=== PATIENT | male | born 1965 | race Caucasian/White ===

== ENCOUNTER 2020-05-14 05:08 | Inpatient (IN) ==
--- NOTE | 2020-05-08 09:22 | Anesthesiology Consultation ---
Date of Service May 08, 2020 Assessment & Plan (1) Encounter for pre-operative examination: Case originally scheduled for 04/03/20, and patient was seen in [facility] in February. R/S to 05/14/20 due to COVID-19 surge capacity protocol. COVID Status: As of 05/03/20 nurse assessment, patient denies travel to endemic area, known exposure/sick contacts, or symptoms of COVID19. Preoperative COVID19 testing completed on 05/07 at [facility], results not yet received. Chart Review Chart Review: Acceptable Risk for Surgery and Patient seen in Pre Admission Testing (03/04/20) History Surgery Operation Date: 05/14/20 07:15 Proposed Procedures p Right Total Knee Arthroplasty - [place] cM DO Height/Weight Height: 5 ft 11 in Weight: 98.883 kg Allergies Allergy/AdvReac Type Severity Reaction Status Date / Time No Known Allergies Allergy Unknown NONE Verified 05/03/20 13:50 Medications Home Medications Medication Instructions Recorded Confirmed Last Taken aspirin [Aspir-81] 81 mg PO QAM 02/20/20 05/03/20 Unknown atorvastatin 40 mg PO QAM 02/20/20 05/03/20 Unknown cholecalciferol (vitamin D3) 50 mcg PO QAM 02/20/20 05/03/20 Unknown [Vitamin D3] cyanocobalamin (vitamin B-12) 1,000 mcg PO QAM 02/20/20 05/03/20 Unknown cyclobenzaprine 5 mg PO HS PRN 02/20/20 05/03/20 Unknown diclofenac sodium 75 mg PO BID PRN 02/20/20 05/03/20 Unknown ibuprofen 600 mg PO DAILY PRN 02/20/20 05/03/20 Unknown lisinopril 40 mg PO QAM 02/20/20 05/03/20 Unknown magnesium oxide 400 mg PO TID 02/20/20 05/03/20 Unknown pantoprazole [Protonix] 40 mg PO QAM 02/20/20 05/03/20 Unknown Past Medical History Medical History (Updated 05/08/20 @ 09:20 by Alexander Curry) Arthritis GERD (gastroesophageal reflux disease) controlled Hyperlipidemia Hypertension Obesity Prediabetes A1C 6.3% on pre-op testing 05/07/20. Past Surgical History Surgical History Biceps muscle tear right s/p repair History of colonoscopy multiple History of esophagogastroduodenoscopy (EGD) multiple History of herniorrhaphy History of knee surgery right X 2 Social History Smoking Status: Light tobacco smoker tobacco type: cigars Smoking cigarettes per day: cigars few times per month Do You Dip or Chew Tobacco: No Hx Alcohol Use: Yes Alcohol type: wine and hard liquor alcohol intake frequency: a few times a week Hx Substance Use: No substance use type: does not use Testing Laboratory Results 05/07/20 WBC: 6.77 H/H: 15.6/44.9 PLATELETS: 199 SODIUM: 141 POTASSIUM: 4.1 CHLORIDE: 109 CO2: 27 BUN: 21 CREATININE: 1.20 GLUCOSE: 97 PT: 10.6 PTT: 25.5 INR: 1.0 A1C: 6.3% Other Testing Electrocardiogram Date: 03/04/20 SR with PACs at 70bpm. Otherwise normal ECG. Chest X-Ray Date: 03/04/20 FINDINGS: Cardiomediastinal and hilar silhouettes are within normal limits. There is no pneumothorax, pleural effusion, airspace consolidation or overt pulmonary edema. Degenerative changes of the shoulders and spine. Mild mid tho racic dextroscoliosis. IMPRESSION: No acute process.
--- NOTE | 2020-05-10 17:57 | History & Physical Report ---
Date of Service May 10, 2020 date of surgery: 05/14/20 Procedure: Right Total Knee Arthroplasty Assessment & Plan (1) Arthritis of right knee: Risks and benefits of procedure discussed in detail today, patient would like to proceed with a Right total knee replacement at [facility] as scheduled. will obtain medical clearance from Dr Sarabia prior to surgery as well as obtain PATs at [facility]. f/u 2 weeks post op for routine post- operative care and x-ray, sooner if having any problems. will make arrangements for HHPT at the time of discharge. At this point in time, has failed conservative measures and would like to proceed with surgical intervention. The risks and benefits have been discussed including, but not limited to, risk of infection, nerve injury, stiffness, loss of motion, failure to improve, etc. Reasonable outcomes and options of treatment were discussed. An explanation of appropriate alternatives to the procedure that may be advantageous were discussed and their risks and benefits, as well as the risks and benefits of not proceeding with treatment. I offered to answer any additional inquiries concerning the treatment involved. All the patient's questions were answered. The patient is agreeable, understanding of the treatment plan and alternatives, and wishes to proceed with the treatment plan. History of Present Illness Chief Complaint: Right knee pain Primary Care Provider: Shirlene Heart MD [place] is a 55 year old male who complains of Right knee pain, presents for pre-op evaluation prior to a Right total knee replacement by dr Mc at [facility]. He complains of pain, decreased range of motion, instability and stiffness in the Right knee. Currently he states that the symptoms are moderate-severe. The pain is described as aching, sharp and throbbing. The symptoms are aggravated by ascending stairs, daily activities, first steps while awake walking. Prior NSAIDs include IBU, Aleve and Mobic. He has been treated with previous visco and cortisone injections in the past without much relief. Allergies Allergy/AdvReac Type Severity Reaction Status Date / Time No Known Allergies Allergy Unknown NONE Verified 05/03/20 13:50 Home Medications Medication Instructions Recorded Confirmed Type aspirin [Aspir-81] 81 mg PO QAM 02/20/20 05/03/20 History atorvastatin 40 mg PO QAM 02/20/20 05/03/20 History cholecalciferol (vitamin D3) 50 mcg PO QAM 02/20/20 05/03/20 History [Vitamin D3] cyanocobalamin (vitamin B-12) 1,000 mcg PO QAM 02/20/20 05/03/20 History cyclobenzaprine 5 mg PO HS PRN 02/20/20 05/03/20 History diclofenac sodium 75 mg PO BID PRN 02/20/20 05/03/20 History ibuprofen 600 mg PO DAILY PRN 02/20/20 05/03/20 History lisinopril 40 mg PO QAM 02/20/20 05/03/20 History magnesium oxide 400 mg PO TID 02/20/20 05/03/20 History pantoprazole [Protonix] 40 mg PO QAM 02/20/20 05/03/20 History Past Med/Surg History Medical History Arthritis GERD (gastroesophageal reflux disease) controlled Hyperlipidemia Hypertension Obesity Prediabetes A1C 6.3% on pre-op testing 05/07/20. Surgical History Biceps muscle tear right s/p repair History of colonoscopy multiple History of esophagogastroduodenoscopy (EGD) multiple History of herniorrhaphy History of knee surgery right X 2 Social History Smoking Status: Light tobacco smoker Cigarettes Per Day: cigars few times per month; Second Hand Exposure: No; Hx Alcohol Use: Yes Alcohol type: wine and hard liquor Hx Substance Use: No Preferred Language: Uzbek Communication Ability: Effective Doormaker Required: No Beliefs That Will Affect Care: None Current Living Situation: Spouse Feels Safe at Home: Yes Assistive Devices: None Review of Systems Review of Systems: All systems reviewed & are unremarkable except as noted in HPI & below Constitutional: no fever, no chills and no sweats Respiratory: no cough and no dyspnea Cardiovascular: no chest pain, no dyspnea and no orthopnea Gastrointestinal: no abdominal pain, no nausea and no vomiting Musculoskeletal: as per Subjective / HPI Physical Exam Physical Exam: Ht: 5ft 11in Wt: 99.8kg BP: 132/82 Constitutional: WD/WN, vitals as above no acute distress Respiratory: normal respiratory effort, lungs clear to auscultation no respiratory distress, no labored breathing and does not use accessory muscles Cardiovascular: RRR, no murmur, no edema Gastrointestinal (Abdomen): normal bowel sounds, soft, nontender, no hepatosplenomegaly Musculoskeletal: Knee: + knee abnormal to inspection (Right Knee), + effusion (+1 effusion), + surgical incision (well healed portals), + limited ROM of knee (ROM 0/3/110), + knee ROM with crepitation, + joint line tenderness (medial joint line) and + Kita's sign positive; no deformity, no skin erythema, no ecchymosis, no valgus laxity, no varus laxity, anterior drawer test negative, Tyler's sign negative and pivot shift test negative Results & Data Results & Data ([facility]) Diagnostic Findings Right Knee X-ray: Right knee series showing advanced degenerative changes to the right knee with overall varus alignment, narrowing of the medial compartment and patello-femoral joint with patellar spurring noted, findings showing joint space narrowing of the medial compartment and patello-femoral joint, osteophyte formation and subchondral sclerosis noted. overall varus alignment. no acute bony pathology noted.
[2020-05-14] MEDS ORDERED: CeleBREX 200 MG CAP PO SCH (06:00)
[2020-05-14] MEDS ORDERED: dexAMETHasone 4 MG TAB PO SCH (06:00)
[2020-05-14] MEDS ORDERED: FAMOTIDINE 20 MG TAB PO SCH (06:00)
[2020-05-14] MEDS ORDERED: ROPIVACAINE 0.5% HCL/PF 150 MG, BUPIVACAINE 0.75% MPF 20 ML, EPINEPHrine 30MG/30ML (OR ... INSTIL SCH (06:00)
[2020-05-14] MEDS ORDERED: ceFAZolin 2000MG 2,000 MG/15 ML SYR IV SCH (06:00)
[2020-05-14] MEDS ORDERED: ACETAMINOPHEN 500 MG TAB PO SCH (06:00)
[2020-05-14] MEDS ORDERED: LR 500ML BOLUS, THEN 15ML/HR IV SCH (06:00)
[2020-05-14] MEDS ORDERED: METOCLOPRAMIDE HCL 10 MG TABLET PO SCH (06:00)
[2020-05-14] MEDS ORDERED: GABAPENTIN 600 MG DOSE PO SCH (06:00)
[2020-05-14] MEDS ORDERED: BUPIVACAINE 0.5 % 5 MG/1 ML PF 10ML VIAL ONE (06:31)
[2020-05-14] MEDS ORDERED: BUPIVACAINE 0.25% 30 ML VIAL ONE (06:32)
[2020-05-14] MEDS ORDERED: MIDAZOLAM HCL 1 MG/ML 2ML VIAL ONE ×2 (06:51→07:28)
[2020-05-14] MEDS ORDERED: fentaNYL citrate 100 MCG/2 ML VIAL ONE (06:52)
[2020-05-14] MEDS ORDERED: ORTHO JOINT ANESTHETIC ONE (07:00)
[2020-05-14] MEDS ORDERED: BACITRACIN INJ 50,000 UNIT VIAL ONE (07:01)
[2020-05-14] MEDS ORDERED: fentaNYL citrate 100 MCG/2 ML VIAL IV PRN (07:11)
[2020-05-14] MEDS ORDERED: ATROPINE SULFATE 0.1 MG/ML 10ML SYR IV PRN (07:11)
[2020-05-14] MEDS ORDERED: ONDANSETRON INJ 2 MG/ML 2 ML VIAL IV PRN ×2 (07:11→10:16)
[2020-05-14] MEDS ORDERED: ePHEDrine sulfate 50 MG/ML AMP IV PRN (07:11)
[2020-05-14] MEDS ORDERED: TRANEXAMIC ACID / 0.7% NACL 1000MG/100ML BAG IV ONE (07:17)
[2020-05-14] MEDS ORDERED: TRANEXAMIC ACID / 0.7% NACL 1,000 MG/100 ML BAG IV ONE ×2 (07:18)
--- NOTE | 2020-05-14 07:28 | History & Physical Bridge Note ---
Date of Service May 14, 2020 History & Physical Bridge Note I have examined the patient, reviewed the History & Physical and in the interval since the performance of the History & Physical I have noted the following changes of clinical significance: no changes noted
[2020-05-14] MEDS ORDERED: PROPOFOL IV EMULSION 10 MG/ML 20 ML VIAL IV ONE (07:55)
[2020-05-14] MEDS ORDERED: ONDANSETRON INJ 2 MG/ML 2 ML VIAL ONE (07:55)
[2020-05-14] MEDS ORDERED: LIDOCAINE HCL 2% 2 ML VIAL/AMP(20MG/ML) INFIL ONE (07:55)
--- NOTE | 2020-05-14 08:37 | Operative Report ---
Post Operative Report Pre & Post Diagnosis Operation Date: 05/14/20 07:15 Pre-Op Diagnosis: Osteoarthritis of Right Knee Post-Op Diagnosis: Osteoarthritis of Right Knee I identified the patient and participated in the time-out.: Yes Procedure Operation Date: 05/14/20 07:15 Actual Procedures p Right Total Knee Arthroplasty(Right) utilizing Arteaga & Fideliselkhart 2 patient matched total knee arthroplasty size 7 femur 7 tibia 11 polyethylene 35 oval patella- Dallas Mc DO Surgeon Dallas Mc DO Clarifier Operator Helper Joey ROJAS Estimated Blood Loss 10 Findings Consistent with Post-Op Diagnosis Patient presents with severe end-stage tricompartmental degenerative joint disease varus alignment subchondral cystic changes marginal osteophytes moderate to large effusion [id number] eburnated bone Specimens Bone and cartilage Drains Medium bore Hemovac Anesthesia Type MAC Spinal Regional Complications none Disposition Accompanied Patient To Recovery: No Disposition: Recovery Room Indications Patient presents for right total knee arthroplasty after failing attempts at conservative management clinic physical therapy anti-inflammatories relative rest activity modification corticosteroid injection Visco supplementation the above intraoperative findings were noted Description of Procedure After proper prepping and draping of the Right lower extremity anterior midline incision was made over the region of the extensor extensor mechanism after meticulous hemostasis was obtained and maintained in subcutaneous tissues a medial parapatellar incision was made The patella was subluxed lateralward the medial lateral gutter were cleaned from any hypertrophic synovitis and scar ti ssue of the distal femoral block was placed and the distal femoral osteotomy cut was made subsequently the chamfers anterior and posterior osteotomy cuts were made utilizing the 4-in-1 block the tibia was subsequently subluxed anteriorward medial and ateral meniscal remnants were excised in their entirety remnants of the anterior and posterior cruciate ligaments were excised in their entirety excellent exposure of the proximal tibia was obtained the tibial osteotomy guide was placed on the proximal tibial osteotomy cut was made once again the knee was irrigated with copious amounts of sterile saline solution the patella was subsequently everted lateralward thickened scar tissue around the patella was removed the patella was subsequently cut utilizing a freehand technique and was drilled prepared for final preparation and placement of patella socially flexion-extension gaps were checked and the equal and symmetric trials were placed to the appropriate femoral and tibial trials with poly-spacer being placed for equal flexion and extension gaps and full range of motion including extension to 0 and flexion to 140 the trial components after having been taken to recovery range of motion was subsequently removed meticulous hemostasis was obtained and maintained subsequently a knee block injection of joint cocktail including ropivacaine 0.5% 150 mg. Bupivacaine 0.5% epinephrine 1-200,030 mL's toradol 30 mg dexamethasone 4 mg ketamine 10 mg clonidine 100 micrograms normal saline solution 30 mg was infiltrated into the soft tissues of the posterior knee medial lateral gutters and periosteal synovium special attention was paid to protect neurovascular structures at all times subsequently trial components having been removed the knee was irrigated with sterile saline solution. debris was removed the proximal tibia was subsequently prepared and was made ready for the placement of the tibial component tibial component was also cemented and tamped into position the femoral component was subsequently placed and cemented in the position the patellar component was subsequently cemented in position because hemostasis once again obtained and maintained wound having been thoroughly irrigated with debridement and debridement lavage was performed as well as a medial parapatellar incision closed with #1 Vicryl in interrupted fashion subcutaneous was closed with #2 Vicryl skin was closed with skin clips. PA-C was necessary for prepping and drapping as well as wound closure of deep fascia Sub cutaneous tissue and skin and was necessary for the case. A sterile compressive dressing was placed patient was taken to recovery in stable condition of report dictated by Alexandro I attest to the content of the Intraoperative Record and any orders documented therein. Any exceptions are noted below. I attest to the content of the Intraoperative Record and any orders documented therein. Any exceptions are noted below.
[2020-05-14] MEDS ORDERED: diphenhydrAMINE Capsule 25 MG CAP PO PRN (10:16)
[2020-05-14] MEDS ORDERED: METOCLOPRAMIDE HCL INJ 5 MG/ML 2 ML VIAL IV PRN (10:16)
[2020-05-14] MEDS ORDERED: HYDROmorphone INJ 1 MG/ML SYRINGE IV PRN (10:16)
[2020-05-14] MEDS ORDERED: bisacodyL 10 MG SUPP PR PRN (10:16)
[2020-05-14] MEDS ORDERED: CYCLOBENZAPRINE HCL 5 MG TAB PO PRN (10:16)
[2020-05-14] MEDS ORDERED: MAGNESIUM HYDROXIDE SUSP 30 ML UDC PO PRN (10:16)
[2020-05-14] MEDS ORDERED: NALOXONE HCL 0.4 MG/1 ML VIAL/CARP IV PRN (10:16)
--- NOTE | 2020-05-14 10:28 | XRay Report ---
RIGHT KNEE 2 VIEWS History: Right total knee arthroplasty. Degenerative arthritis. Postop. FINDINGS: The patient is status post a right total knee arthroplasty. The hardware is intact. No frac ture or dislocation. Surgical drains are in place. IMPRESSION: Right total knee arthroplasty. No evidence for hardware complication. ACT 112: Negative or not required by law. Electronically signed by: Raulito Hernandez M.D. 05/14/2020 10:27 AM
--- NOTE | 2020-05-14 10:58 | Anesthesiology Progress Note ---
Date of Service May 14, 2020 Anesthesia Post Procedure Vital Signs Vital Signs: Temp Pulse Pulse Pulse Resp BP Pulse Ox 05/14/20 10:47 36.4 C L 62 17 146/89 H 94 05/14/20 10:15 36.4 C L 62 18 144/80 H 96 05/14/20 09:55 37.0 C 66 14 148/69 H 94 05/14/20 09:45 64 19 133/72 93 05/14/20 09:35 62 11 L 127/61 98 05/14/20 09:25 73 15 121/81 96 05/14/20 09:15 36.9 C 72 16 116/63 97 05/14/20 05:34 37.1 C 72 16 168/93 H 96 Transfer of Care Handoff Completed per policy Notes Mental Status: alert / awake / arousable and participated in evaluation Nausea / Vomiting: adequately controlled Pain: adequately controlled Airway Patency, RR, SpO2: stable & adequate BP & HR: stable & adequate Hydration State: stable & adequate Neuraxial Anesthesia: was administered and sensory block is resolving Anesthetic Complications: no major complications apparent and Pt Satisfied with anesthetic care
[2020-05-14] MEDS: SODIUM CHLORIDE 0.9% 1000ML 1,000 ML IV SCH ×2 (11:42→21:44)
[2020-05-14] MEDS: KETOROLAC 30 MG/ML VIAL IV SCH ×3 (11:42→22:50)
[2020-05-14] MEDS: ACETAMINOPHEN 500 MG TAB PO SCH ×2 (13:15→21:45)
[2020-05-14] MEDS: MAGNESIUM OXIDE 400 MG TAB PO SCH ×2 (13:15→21:46)
[2020-05-14] MEDS: ceFAZolin 2000MG 2,000 MG/15 ML SYR IV SCH ×2 (14:23→22:55)
[2020-05-14] MEDS: oxyCODONE HCL IR 5 MG TAB (IMMEDIATE RELEASE) PO PRN (20:09)
[2020-05-14] MEDS: ASPIRIN 81 MG ECTAB PO SCH (21:45)
[2020-05-14] MEDS: DOCUSATE SODIUM 100 MG CAP PO SCH (21:46)
[2020-05-14] MEDS: SENNA 8.6 MG TAB PO SCH (21:46)
[2020-05-15] MEDS: KETOROLAC 30 MG/ML VIAL IV SCH (04:53)
[2020-05-15 05:59] LABS: Hematocrit (blood only) 37.3 % (42-52); Hemoglobin 12.9 g/dL (14.0-18.0); Mean Corpuscular Hemoglobin 31.2 pg (25-34); Mean Corpuscular Hgb Conc 34.6 g/dL (32-36); Mean Corpuscular Volume 90.1 fL (80-100); Mean Platelet Volume 9.7 fL (7.4-10.4); Platelet Count 196 K/uL (130-400); RDW Coefficient of Variation 12.3 % (11.5-14.5); RDW Standard Deviation 39.7 fL (36.4-46.3); Red Blood Count 4.14 M/uL (4.7-6.1); White Blood Count 13.11 K/uL (4.8-10.8)
[2020-05-15 06:24] LABS: BUN Creatinine Ratio 17.7 (10-20); Creatinine Clr Calc Pharmacy 97.2 ml/min; Est GFR (African American) 93.2; Est GFR (Non-African American) 80.5; Potassium 4.3 mmol/L (3.5-5.1)
[2020-05-15] MEDS: ACETAMINOPHEN 500 MG TAB PO SCH ×3 (06:25→19:17)
[2020-05-15] MEDS: CYANOCOBALAMIN 500 MCG TABLET (VITAMIN B-12) PO SCH (08:32)
[2020-05-15] MEDS: lisinopril 40 MG TAB PO SCH (08:32)
[2020-05-15] MEDS: ASPIRIN 81 MG ECTAB PO SCH ×2 (08:33→19:15)
[2020-05-15] MEDS: DOCUSATE SODIUM 100 MG CAP PO SCH ×2 (08:33→19:15)
[2020-05-15] MEDS: MAGNESIUM OXIDE 400 MG TAB PO SCH ×3 (08:33→19:15)
[2020-05-15] MEDS: MULTIVITAMIN TAB PO SCH (08:33)
[2020-05-15] MEDS: oxyCODONE HCL IR 5 MG TAB (IMMEDIATE RELEASE) PO PRN ×3 (08:33→19:20)
[2020-05-15] MEDS: CHOLECALCIFEROL 1,000 UNITS 25 MCG TAB PO SCH (08:33)
--- NOTE | 2020-05-15 09:27 | Orthopedic Progress Note ---
Date of Service May 15, 2020 Assessment & Plan (1) Arthritis of right knee: Postop day 1 status post right total knee arthroplasty. PT/OT protocols. Weightbearing as tolerated. DVT prophylaxis with aspirin p.o. twice daily, YADI Fields. Pain management as written. Mild leukocytosis-patient currently asymptomatic. Likely due to preoperative steroids/surgical stress DC planning-patient is planning for home health services upon discharge. Admission and Anticipated Discharge Date Admission Date: May 14, 2020 Subjective Postop day 1 Patient sitting up in bed awake and alert. No complaints this morning. Pain is controlled. Denies shortness of breath, chest pain, lightheadedness. Physical Exam 2 Physical Exam: Dressings are clean, dry, and intact. Calves are soft and nontender. Neurovascular is intact. Toes are mobile. He has good dorsiflexion and plantarflexion of the foot. Hemovac drainage was 175 mL from the previous shift. Results & Data ([facility]) Vital Signs (Past 12 Hours) Vital Signs Temp Pulse Resp BP Pulse Ox 05/15/20 08:08 36.8 C 64 17 144/74 H 95 05/15/20 03:30 36.5 C 65 16 131/71 94 05/14/20 22:19 36.5 C 59 L 16 130/77 93 Laboratory Results Laboratory Results WBC 13.11 K/uL (4.8-10.8) H 05/15/20 05:30 RBC 4.14 M/uL (4.7-6.1) L 05/15/20 05:30 Hgb 12.9 g/dL (14.0-18.0) L 05/15/20 05:30 Hct 37.3 % (42-52) L 05/15/20 05:30 MCV 90.1 fL (80-100) 05/15/20 05:30 MCH 31.2 pg (25-34) 05/15/20 05:30 MCHC 34.6 g/dL (32-36) 05/15/20 05:30 RDW Std Deviation 39.7 fL (36.4-46.3) 05/15/20 05:30 RDW Coeff of Ruben 12.3 % (11.5-14.5) 05/15/20 05:30 Plt Count 196 K/uL (130-400) 05/15/20 05:30 MPV 9.7 fL (7.4-10.4) 05/15/20 05:30 Sodium 140 mmol/L (136-145) 05/15/20 05:30 Potassium 4.3 mmol/L (3.5-5.1) 05/15/20 05:30 Chloride 108 mmol/L (98-107) H 05/15/20 05:30 Carbon Dioxide 27 mmol/L (21-32) 05/15/20 05:30 Anion Gap 5.0 (3-11) 05/15/20 05:30 BUN 18 mg/dl (7-18) 05/15/20 05:30 Creatinine 1.04 mg/dl (0.6-1.4) 05/15/20 05:30 Est Cr Clr Drug Dosing 97.2 ml/min 05/15/20 05:30 Est GFR ( Amer) 93.2 05/15/20 05:30 Est GFR (Non-Af Amer) 80.5 05/15/20 05:30 BUN/Creatinine Ratio 17.7 (10-20) 05/15/20 05:30 Glucose 146 mg/dl (70-99) H 05/15/20 05:30 Calcium 8.0 mg/dl (8.5-10.1) L 05/15/20 05:30 Blood Type A Positive 05/14/20 05:33 Antibody Screen NEGATIVE 05/14/20 05:33
[2020-05-15] MEDS: ATORVASTATIN 40 MG TAB PO SCH (11:05)
[2020-05-15] MEDS: CeleBREX 200 MG CAP PO SCH (19:16)
[2020-05-15] MEDS: SENNA 8.6 MG TAB PO SCH (19:16)
[2020-05-16] MEDS: oxyCODONE HCL IR 5 MG TAB (IMMEDIATE RELEASE) PO PRN ×2 (03:47→08:27)
[2020-05-16] MEDS: ACETAMINOPHEN 500 MG TAB PO SCH (06:12)
--- NOTE | 2020-05-16 07:30 | Orthopedic Progress Note ---
Date of Service May 16, 2020 Assessment & Plan (1) Arthritis of right knee: Postop day 2 status post right total knee arthroplasty. PT/OT protocols. Weightbearing as tolerated. DVT prophylaxis with aspirin p.o. twice daily, Diamond, YADI ramos. Pain management as written. DC planning-patient is planning for home health services upon discharge. plan on d/c home today with HHPT Admission and Anticipated Discharge Date Admission Date: May 14, 2020 Subjective Postop day 2 Patient sitting up in bed awake and alert. No complaints this morning. Pain is controlled. Denies shortness of breath, chest pain, lightheadedness. Review of Systems Review of Systems: All systems reviewed & are unremarkable except as noted in HPI & below Constitutional: no fever and no chills Respiratory: no cough and no dyspnea Cardiovascular: no chest pain, no dyspnea and no orthopnea Gastrointestinal: no abdominal pain, no nausea and no vomiting Physical Exam Physical Exam: Vital Signs Temp 36.6 C 05/16/20 06:42 Pulse 62 05/16/20 06:42 Resp 16 05/16/20 06:42 BP 144/80 H 05/16/20 06:42 Pulse Ox 94 05/16/20 06:42 Intake & Output 05/15/20 05/16/20 05/16/20 18:59 06:59 18:59 Intake Total 1650 / 2150 500 / 2150 Output Total 475 / 640 165 / 640 Balance 1175 / 1510 335 / 1510 Intake: Oral 1650 / 2150 500 / 2150 Output: Urine 200 / 200 Drain Output 275 / 440 165 / 440 Right Knee Hem ovac 275 / 440 165 / 440 Other: # Unmeasured Voi ds 1 Constitutional: WD/WN, vitals as above no acute distress Musculoskeletal: Right leg: NVDI, calf SNT, negative lazarus sign. DP palpable, able to wiggle toes/ankle movement without difficulty. dressing clean dry and intact. expected post-operative bruising noted. Results & Data ([facility]) Vital Signs (Past 12 Hours) Vital Signs Temp Pulse Resp BP Pulse Ox 05/16/20 06:42 36.6 C 62 16 144/80 H 94 05/15/20 23:09 36.5 C 60 16 107/61 97
--- NOTE | 2020-05-16 08:00 | Discharge Summary ---
Date of Service date of discharge: May 16, 2020 date of admission: 05/14/20 Admission HPI Per Admitting Provider [place] is a 55 year old male who complains of Right knee pain, presents for pre- op evaluation prior to a Right total knee replacement by dr Mc at [facility]. He complains of pain, decreased range of motion, instability and stiffness in the Right knee. Currently he states that the symptoms are moderate-severe. The pain is described as aching, sharp and throbbing. The symptoms are aggravated by ascending stairs, daily activities, first steps while awake walking. Prior NSAIDs include IBU, Aleve and Mobic. He has been treated with previous visco and cortisone injections in the past without much relief. Principal Diagnosis Right knee djd Discharge Exam Vital Signs Temp 36.6 C 05/16/20 07:33 Pulse 66 05/16/20 07:33 Resp 16 05/16/20 07:33 BP 144/80 H 05/16/20 07:33 Pulse Ox 94 05/16/20 07:33 Intake & Output 05/15/20 05/16/20 05/16/20 18:59 06:59 18:59 Intake Total 1650 / 2150 500 / 2150 Output Total 475 / 640 165 / 640 Balance 1175 / 1510 335 / 1510 Weight 101.2 kg Intake: Oral 1650 / 2150 500 / 2150 Output: Urine 200 / 200 Drain Output 275 / 440 165 / 440 Right Knee Hemovac 275 / 440 165 / 440 Other: # Unmeasured Voids 1 Musculoskeletal Right knee: NVDI, calf SNT, negative lazarus sign. DP palpable, able to wiggle toes/ankle movement without difficulty. incision clean dry and intact. expected post-operative bruising noted. Discharge Data Allergies Allergy/AdvReac Type Severity Reaction Status Date / Time No Known Allergies Allergy Unknown NONE Verified 05/14/20 05:26 Consultations 05/14/20 10:16 Consult Case Management - Discharge Planning Routine Procedures Performed Operation Date: 05/14/20 07:15 Actual Procedures p Right Total Knee Arthroplasty(Right) - Dallas Mc DO Ordered Studies 05/14/20 05:00 US - OR guided needle placemen Routine Hospital Course (1) Arthritis of right knee: Postop day 2 status post right total knee arthroplasty. PT/OT protocols. Weightbearing as tolerated. DVT prophylaxis with aspirin p.o. twice daily, SCDs, YADI hose. Pain management as written. DC planning-patient is planning for home health services upon discharge. plan on d/c home today with [facility]PT Total Time Total Time Spent Total Time Spent (In Minutes): 20 Total Time Includes: Examination of the Patient and Discharge Planning Discharge Plan Discharge Items Patient Disposition: Home - Home Health Services Reason For Visit: Osteoarthritis of Right Knee Discharge Diagnosis: right total knee replacement Condition on Discharge: Good Activity: Per Instructions section Lifting: Wait until after follow-up appointment Weightbearing: Right weightbearing Weightbearing Comment: WBAT with walker Non-emergency contact: Surgeon Call non-emergency contact if: you have any medication questions, your temperature is above 101, your wound has increased redness, your wound has increased drainage and your wound pain has increased Follow-up/Referrals: Shirlene Heart MD [Primary Care Provider] - Diet: Regular Addtl Attending Provider Instructions: ACTIVITY RECOMMENDATIONS: SELF CARE INSTRUCTIONS AFTER TOTAL KNEE REPLACEMENT A. You may need to continue a physical therapy program after discharge from the hospital. There are several options available to you. Your doctor will assist you in selecting the best one for you. 1. An out-patient facility 2 to 3 times a week for therapy or home therapy. 2. Continue working on all exercises taught to you in the hospital. Your goals should be to increase bending of your knee to 90 degrees and beyond and to fully straighten your knee. B. You may progress at your own pace from walking with a walker or crutches to a cane; then to no assistive devices. C. Make walking a part of your daily routine. Be up as much as comfortable with rest periods throughout the day. Rest with leg elevation is very important. Use the ice wrap frequently for the first 3-4 weeks. D. There are no restrictions on activities. You may ride in a car, shop, participate in satellite tv installer and all social activities. E. Wear the long elastic stockings (YADI hose) 20 hours a day for 2 weeks after surgery. They can be removed several times a day for laundering and for a bath. F. You may shower, no tub baths until cleared by your doctor. SPECIAL CARE INSTRUCTIONS: VERY IMPORTANT TO READ AND REVIEW A. There are a few signs you need to watch for after you are home. Call [facility] if you notice any of the followin. Increased severe knee pain. Some pain is expected especially when you exercise. 2. Increased swelling in your leg or knee; pain or swelling of the calf muscle in either lower leg. 3. Any fluid drainage from the incision. 4. Shortness of breath or chest pain. B. Please call [facility] at if you have any concerns or questions about your operation or recovery. The doctor or his nurse will return your call promptly. C. You must take antibiotics before dental work, bladder, bowel or other surgery. Your doctor will provide you with a permanent care to carry describing this precaution. IMPORTANT: * REMEMBER TO TAKE ASPIRIN, 81 MG, TWICE DAILY FOR 4 WEEKS UNLESS OTHERWISE DIRECTED. THIS IS YOUR BLOOD THINNER. * HIGH RISK PATIENTS MAY BE PRESCRIBED A STRONGER BLOOD THINNER. THIS WILL BE PROVIDED AT DISCHARGE. * CALL IF INCREASED PAIN, REDNESS, DRAINAGE OR FEVER GREATER THAT 101. * WEAR YADI HOSE 20 HOURS PER DAY FOR 2 WEEKS. * DERMABOND Prineo- This is a mesh tape dressing that is covered with glue. It should remain in place until the incision is properly healed, usually 10-14 days. This dressing is designed to naturally slough off. You may trim the excess mesh tape as it peels off. Incision may be briefly wet in a shower. Dry immediately by blotting with a clean, dry towel. Do not bath or swim until instructed by your doctor. Do not scratch, rub, or pick at the dressing. Do not apply any topical ointments or lotions until dressing is completely removed and/or instructed by your doctor. There may be a small piece of suture material at one end of your incision. Do not pull or trim this. If it is bothersome or catching on clothing, you may cover it with a band-aid. IF INCISION IS LEAKING THROUGH DRESSING, CALL THE OFFICE . FOLLOW UP VISIT: If appointment is not already scheduled: Please call [facility] to make a follow-up appointment for 2 weeks after your surgery at . Pending Studies at Discharge: No Stand-Alone Forms: My [employer], Smoking Cessation Medications and DC Order Prescriptions: New celecoxib [Celebrex] 200 mg Capsule 200 mg PO BID 30 Days Qty: 60 RF: 0 aspirin 81 mg Tablet,Delayed Release (Dr/Ec) 81 mg PO BID 30 Days Qty: 60 RF: 0 acetaminophen 500 mg Tablet 1,000 mg PO Q8 21 Days Qty: 126 RF: 0 oxycodone 5 mg Tablet 5 - 10 mg PO Q6H PRN (Reason: pain) Qty: 30 RF: 0 docusate sodium 100 mg Capsule 100 mg PO BID 10 Days Qty: 20 RF: 0 cefadroxil 500 mg capsule 500 mg PO BID 10 Days Qty: 20 RF: 0 Continued atorvastatin 40 mg Tablet 40 mg PO QAM RF: 0 lisinopril 20 mg Tablet 40 mg PO QAM RF: 0 cyanocobalamin (vitamin B-12) 1,000 mcg Tablet 1,000 mcg PO QAM RF: 0 pantoprazole [Protonix] 40 mg Tablet,Delayed Release (Dr/Ec) 40 mg PO QAM RF: 0 cyclobenzaprine 5 mg Tablet 5 mg PO HS PRN (Reason: Muscle Spasm) RF: 0 cholecalciferol (vitamin D3) [Vitamin D3] 125 mcg (5,000 unit) Tablet 50 mcg PO QAM RF: 0 magnesium oxide 400 mg magnesium Tablet 400 mg PO TID RF: 0 Discontinued ibuprofen 200 mg Capsule 600 mg PO DAILY PRN (Reason: Pain) RF: 0 aspirin [Aspir-81] 81 mg Tablet,Delayed Release (Dr/Ec) 81 mg PO QAM RF: 0 diclofenac sodium 75 mg Tablet,Delayed Release (Dr/Ec) 75 mg PO BID PRN (Reason: Pain) RF: 0 Discharge Orders: Discharge Order (Routine); Ordered 05/16/20 Ordered By: Joey Gunter Admission Data Admit Date/Time: 05/14/20 09:30 Attending Provider: Dallas Mc Admit Provider: Dallas Mc Primary Care Provider: Shirlene Heart Other Providers: [facility],Home Healthcare Other Interventions: Discharge Summary Assessment (RN) Last Done: 05/16/20 07:33
[2020-05-16] MEDS: CHOLECALCIFEROL 1,000 UNITS 25 MCG TAB PO SCH (08:27)
[2020-05-16] MEDS: CYANOCOBALAMIN 500 MCG TABLET (VITAMIN B-12) PO SCH (08:27)
[2020-05-16] MEDS: MULTIVITAMIN TAB PO SCH (08:28)
[2020-05-16] MEDS: CeleBREX 200 MG CAP PO SCH (08:28)
[2020-05-16] MEDS: ATORVASTATIN 40 MG TAB PO SCH (08:28)
[2020-05-16] MEDS: DOCUSATE SODIUM 100 MG CAP PO SCH (08:28)
[2020-05-16] MEDS: ASPIRIN 81 MG ECTAB PO SCH (08:28)
[2020-05-16] MEDS: lisinopril 40 MG TAB PO SCH (08:28)
[2020-05-16] MEDS: MAGNESIUM OXIDE 400 MG TAB PO SCH (08:28)
[2020-05-16] MEDS ORDERED: PANTOprazole 40 MG TAB PO SCH (09:00)
== END 2020-05-16 11:19 | disposition home health service (06) | DRG 470 ==
LOC: ASU 05:08 → 3E 05:08 → OBSVTOIN 09:30